=== PATIENT | male | born 1950 | race Caucasian/White ===

== ENCOUNTER 2018-04-23 10:03 | Inpatient (IN) | payer MEDICARE, MEDICAID ==
--- NOTE | 2018-04-23 10:18 | ED Physician Chart ---
ED Chief Complaint/HPI - Patient Information Date Seen:: 04/23/18 Time Seen:: 10:00 Chief Complaint:: Agitation History of Present Illness:: onset x 2 days of agitation and aggressive behavior; no report of trauma, H/As, neck pain, C/P, SOB, Abd. Pain, A/N/V/D/C, fever, chills, or urinary s/s Historian:: Patient, EMS Review:: Nurse's Note Reviewed, Old Chart Reviewed, EMS run form Reviewed ED Review of Systems - Review of Systems General/Constitutional: No fever, No chills, No weight loss, No weakness, No diaphoresis, No edema, No loss of appetite Skin: No skin lesions, No rash, No bruising Head: No headache, No light-headedness Eyes: No loss of vision, No pain, No diplopia ENT: No earache, No nasal drainage, No sore throat, No tinnitus Neck: No neck pain, No swelling, No thyromegaly, No stiffness, No mass noted Cardio Vascular: No chest pain, No palpitations, No PND, No orthopnea, No edema Pulmonary: No SOB, No cough, No sputum, No wheezing GI: No nausea, No vomiting, No diarrhea, No pain, No melena, No hematochezia, No constipation, No hematemesis G/U: No dysuria, No frequency, No hematuria Musculoskeletal: No bone or joint pain, No back pain, No muscle pain Endocrine: No polyuria, No polydipsia Psychiatric: Prior psych history, Depression, Anxiety, No suicidal ideation, No homicidal ideation, No auditory hallucination, No visual hallucination Hematopoietic: No bruising, No lymphadenopathy Allergic/Immuno: No urticaria, No angioedema Neurological: No syncope, No focal symptoms, No weakness, No paresthesia, No headache, No seizure, No dizziness, Confusion, No vertigo ED Past Medical History - Past Medical History Obtainable: Yes Past Medical History: HTN, Dyslipidemia, Dementia Family History: HTN Social History: Non Smoker, No Alcohol, No Drug Use, Single, Care Facility Surgical History: None Psychiatricy History: Depression, Bipolar, Dementia Medication: Reviewed ED Physical Exam - Physical Examination General/Constitutional: Awake, Well-developed, well-nourished, Alert, No distress, GCS 15, Non-toxic appearing, Ambulatory Head: Atraumatic Eyes: Lids, conjuctiva normal, PERRL, EOMI Skin: Nl inspection, No rash, No skin lesions, No ecchymosis, Well hydrated, No lymphadenopathy ENMT: External ears, nose nl, TM canals nl, Nasal exam nl, Lips, teeth, gums nl , Oropharynx nl, Tonsils nl Neck: Nontender, Full ROM w/o pain, No JVD, No nuchal rigidity, No bruit, No mass, No stridor Respiratory: Nl effort/Exclusion, Clear to Auscultation, No Wheeze/Rhonchi/Rales Cardio Vascular: RRR, No murmur, gallop, rubs, NL S1 S2, Carotid/Femoral/Distal pulses equal bilaterally GI: No tenderness/rebounding/guarding, No organomegaly, No hernia, Normal BS's, Nondistended, No mass/bruits, No McBurney tenderness : No CVA tenderness Extremities: No tenderness or effusion, Full ROM, normal strength in all extremities, No edema, Normal digits & nails Neuro/Psych: Alert/oriented, DTR's symmetric, Normal sensory exam, Normal motor strength, Judgement/insight normal, Mood normal, Normal gait, No focal deficits Misc: Normal back, No paraspinal tenderness ED Septic Shock - . Is Septic Shock (SBP<90, OR Lactate>4 mmol\L) present?: No
[2018-04-23 10:31] LABS: BASOPHILE ABSOLUTE 0.1 Th/cumm (0-0.2); EOSINOPHILE ABSOLUTE 0.3 Th/cmm (0.1-0.4); LYMPHOCYTE ABSOLUTE 2.5 Th/cmm (1.5-3.0); MEAN CORPUSCULAR HGB CONC 33.6 pg (28.0-36.0)
[2018-04-23 10:35] LABS: % BASOPHILS 0.5 % (0.0-2.0); % LYMPHOCYTES 17.3 % (20.0-50.0); % MONOCYTES 7.1 % (2.0-10.0); % NEUTROPHILS 73.1 % (40.0-80.0); HEMATOCRIT 39.1 % (41.0-60); HEMOGLOBIN 13.1 gm/dL (12-16); MEAN CELL VOLUME 94.1 fl (80-99); MEAN CORPUSCULAR HEMOGLOBIN 31.6 pg (27.0-31.0); MEAN PLATELET VOLUME 7.8 fl; NEUTROPHILE ABSOLUTE 10.4 Th/cmm (1.8-8.0); PLATELET COUNT 277 Th/cmm (150-400); RED BLOOD COUNT 4.16 Mil/cmm (3.80-5.80); RED CELL DISTRIBUTION WIDTH 12.3 % (11.5-20.0)
[2018-04-23 10:37] LABS: WHITE BLOOD COUNT 14.3 Th/cmm (4.8-10.8)
[2018-04-23 10:50] LABS: ACETAMINOPHEN < 10.0 ug/mL (10.0-30.0); ALB/GLOB RATIO 1.1 (1.0-1.8); ALBUMIN 3.8 gm/dL (4.2-5.5); ALKALINE PHOSPHATASE 58 U/L (34-104); ANION GAP 12.3 (7.0-16.0); BILIRUBIN,TOTAL 0.5 mg/dL (0.3-1.0); BUN - UREA NITROGEN 14 mg/dL (7-25); CALCIUM SERUM 8.9 mg/dL (8.6-10.3); CARBON DIOXIDE 27.4 mEq/L (21.0-31.0); CHLORIDE 98 mEq/L (98-107); CHOLESTEROL 154 mg/dL (<200); CREATININE - SERUM 0.7 mg/dL (0.7-1.3); GFR AFRICAN-AMERICAN > 60.0 ml/min (>90); GFR NON AFRICAN-AMERICAN > 60.0 ml/min; GLUCOSE 73 mg/dL (70-105); HDL -HIGH DENSITY LIPOPROTEIN 48 mg/dL (23-92); POTASSIUM SERUM 3.7 mEq/L (3.5-5.1); SALICYLATES (ASPIRIN) < 25.0 mg/L (30.0-100.0); SGOT 15 U/L (13-39); SGPT/ALT 12 U/L (7-52); SODIUM SERUM 134 mEq/L (136-145); TOTAL PROTEIN,SERUM 7.4 gm/dL (6.0-8.3); TRIGLYCERIDES 101 mg/dL (<150)
[2018-04-23 11:31] LABS: URINE SOURCE CLEAN C
[2018-04-23 11:54] LABS: URINE BILIRUBIN NEGATIVE (NEGATIVE); URINE BLOOD NEGATIVE (NEGATIVE); URINE CLARITY CLEAR (CLEAR); URINE COLOR YELLOW; URINE GLUCOSE (UA) NEGATIVE (NEGATIVE); URINE KETONE NEGATIVE (NEGATIVE); URINE PROTEIN NEGATIVE (NEGATIVE)
[2018-04-23 11:55] LABS: URINE LEUKOCYTE ESTERASE NEGATIVE (NEGATIVE); URINE MICROSCOPIC INDICATED? NO; URINE NITRATE NEGATIVE (NEGATIVE); URINE UROBILINOGEN 0.2 E.U./dL (0.2 - 1.0)
[2018-04-23 12:00] LABS: AMPHETAMINE URINE NEGATIVE (NEGATIVE); BARBITURATES URINE NEGATIVE (NEGATIVE); BENZODIAZEPINES QUAL URINE NEGATIVE (NEGATIVE); CANNABINOID THC NEGATIVE (NEGATIVE); COCAINE METABOLITE QUAL URINE NEGATIVE (NEGATIVE); METHADONE URINE NEGATIVE (NEGATIVE); METHAMPHETAMINES QUAL URINE NEGATIVE (NEGATIVE); OPIATES (MORPHINE) QUAL. URINE NEGATIVE (NEGATIVE); PHENCYCLIDINE (PCP) URINE NEGATIVE (NEGATIVE); TRICYCLICS (TCA) QUAL. URINE NEGATIVE (NEGATIVE)
--- NOTE | 2018-04-23 14:42 | Diagnostic Imaging Report ---
CHEST X-RAY: AP view INDICATION: Leukocytosis COMPARISON: None FINDINGS: There is evidence of prior median sternotomy. There is no focal consolidation or pleural effusions The heart is normal in size. The osseous structures demonstrate no acute abnormalities. IMPRESSION: No focal consolidation identified. Evidence of prior median sternotomy.
[2018-04-23 17:35] LABS: A1C % 7.4 % (4.0-6.0)
[2018-04-23] MEDS: Atorvastatin Calcium 10 MG TAB PO SCH (20:57)
[2018-04-23] MEDS ORDERED: INSULIN HUMAN REGULAR 100 UNITS/ML UNIT SUBQ SCH (21:00)
[2018-04-24] MEDS: INSULIN ASPART SLIDING SCALE 100 UNITS/ML UNIT SUBQ SCH ×3 (07:21→17:24)
[2018-04-24] MEDS ORDERED: INSULIN ASPART, RECOMBINANT 100 UNITS/ML SUBQ SCH (08:00)
--- NOTE | 2018-04-24 09:24 | History and Physical ---
History of Present Illness - HPI Chief Complaint: Increased in agitation HPI: Patient was send from SNF for evaluation of increased in agitation. Vital Signs: Last Vital Signs Temp 97.9 F 04/24/18 06:03 Pulse 94 04/24/18 06:03 Resp 20 04/24/18 06:03 BP 144/83 04/24/18 06:03 Pulse Ox 98 04/24/18 06:03 Past Medical History Cardiovascular: Report: HTN Pulmonary: Report: No Pertinent Hx FOOD TESTER: Report: Dementia GI: Report: No Pertinent Hx Psych: Report: Schizophrenia Musculoskeletal: Report: No Pertinent Hx Rheumatologic: Report: No pertinent Hx Infectious Disease: Report: Other (Dermatitis) Renal/: Report: No Pertinent Hx Endocrine: Report: Diabetes Dermatology: Report: Eczema - Past Surgical History Past Surgical History: No pertinent Hx Family Medical History - Family Member Mother History Unknown: Yes Ethnicity: Social History Smoke: No Alcohol: None Drugs: None Lives: Custodial Domestic Violence: Negative - Medications Home Medications: Home Medication Medication Instructions Recorded Type Aspirin [Aspirin Chewable] 81 mg PO DAILY 04/23/18 History Atorvastatin Calcium [Lipitor] 20 mg PO HS 04/23/18 History Cyanocobalamin (Vitamin B-12) 1 tab PO DAILY 04/23/18 History [Vitamin B-12] Donepezil Hcl [Aricept] 10 mg PO DAILY 04/23/18 History Escitalopram Oxalate [Lexapro] 10 mg PO DAILY 04/23/18 History Insulin Human Regular [NovoLIN R] 2 units SUBQ TID 04/23/18 History Ivermectin [Stromectol] 15 mg PO QWEEK 0730 04/23/18 History Prednisone [Deltasone] 20 mg PO BID 04/23/18 History metFORMIN [Glucophage] 1,000 mg PO BID 04/23/18 History - Allergies Allergies/Adverse Reactions: Allergies Allergy/AdvReac Type Severity Reaction Status Date / Time No Known Allergies Allergy Verified 04/23/18 10:24 Review of Systems - Review of Systems Constitutional: Report: No Significant Eyes: Report: No Significant ENT: Report: No Significant Respiratory: Report: No Significant Cardiovascular: Report: No Significant Gastrointestinal: Report: No Significant Genitourinary: Report: No Significant, Frequency Skin: Report: Rash, Other (Body itch) Neurological: Report: No Significant Physical Exam - Physical Exam HEENT: Report: Ears Nose Throat within normal limits Neck: Report: Within normal limits Cardiovascular Systems: Report: Regular, Rate and Rhythm Respiratory: Report: Breath Sounds are within normal limits Abdomen: Report: Non-tender to palpation Back: Report: Inspection of back is within normal limits. Extremities: Report: Non-tender to palpation. Skin: Report: Other (Mukltiple scoriation in different oarts of arms and chest front and back, with dry lesions. ) Neuro/Psych: Report: Disoriented to name time or place - Lab Results All Lab Results last 24 hours: Laboratory Results - last 24 hr 04/23/18 04/23/18 04/23/18 10:25 10:25 10:25 WBC 14.3 H RBC 4.16 Hgb 13.1 Hct 39.1 L MCV 94.1 MCH 31.6 H MCHC Differential 33.6 RDW 12.3 Plt Count 277 MPV 7.8 Neutrophils % 73.1 Lymphocytes % 17.3 L Monocytes % 7.1 Eosinophils % 2.0 Basophils % 0.5 Sodium 134 L Potassium 3.7 Chloride 98 Carbon Dioxide 27.4 Anion Gap 12.3 BUN 14 Creatinine 0.7 Est GFR ( Amer) > 60.0 Est GFR (Non-Af Amer) > 60.0 BUN/Creatinine Ratio 20.0 Glucose 73 POC Glucose Hemoglobin A1c % 7.4 H Whole Bld Lactic Acid Calcium 8.9 Total Bilirubin 0.5 AST 15 ALT 12 Alkaline Phosphatase 58 Troponin I Total Protein 7.4 Albumin 3.8 L Globulin 3.6 Albumin/Globulin Ratio 1.1 Triglycerides 101 Cholesterol 154 LDL Cholesterol Direct 95 HDL Cholesterol 48 TSH Urine Source Urine Color Urine Clarity Urine pH Ur Specific [place] Urine Protein Urine Glucose (UA) Urine Ketones Urine Blood Urine Nitrate Urine Bilirubin Urine Urobilinogen Ur Leukocyte Esterase Salicylates < 25.0 L Urine Opiates Screen Urine Methadone Screen Acetaminophen < 10.0 L Ur Barbiturates Screen Ur Tricyclics Screen Ur Phencyclidine Scrn Amphetamines Screen U Methamphetamines Scrn U Benzodiazepines Scrn U Cocaine Metab Screen U Cannabinoids Screen Ethyl Alcohol < 10 04/23/18 04/23/18 04/23/18 10:25 10:25 10:25 WBC RBC Hgb Hct MCV MCH MCHC Differential RDW Plt Count MPV Neutrophils % Lymphocytes % Monocytes % Eosinophils % Basophils % Sodium Potassium Chloride Carbon Dioxide Anion Gap BUN Creatinine Est GFR ( Amer) Est GFR (Non-Af Amer) BUN/Creatinine Ratio Glucose POC Glucose Hemoglobin A1c % Whole Bld Lactic Acid 2.33 H* Calcium Total Bilirubin AST ALT Alkaline Phosphatase Troponin I < 0.01 L Total Protein Albumin Globulin Albumin/Globulin Ratio Triglycerides Cholesterol LDL Cholesterol Direct HDL Cholesterol TSH 1.27 Urine Source Urine Color Urine Clarity Urine pH Ur Specific [place] Urine Protein Urine Glucose (UA) Urine Ketones Urine Blood Urine Nitrate Urine Bilirubin Urine Urobilinogen Ur Leukocyte Esterase Salicylates Urine Opiates Screen Urine Methadone Screen Acetaminophen Ur Barbiturates Screen Ur Tricyclics Screen Ur Phencyclidine Scrn Amphetamines Screen U Methamphetamines Scrn U Benzodiazepines Scrn U Cocaine Metab Screen U Cannabinoids Screen Ethyl Alcohol 04/23/18 04/23/18 04/23/18 10:28 10:28 12:20 WBC RBC Hgb Hct MCV MCH MCHC Differential RDW Plt Count MPV Neutrophils % Lymphocytes % Monocytes % Eosinophils % Basophils % Sodium Potassium Chloride Carbon Dioxide Anion Gap BUN Creatinine Est GFR ( Amer) Est GFR (Non-Af Amer) BUN/Creatinine Ratio Glucose POC Glucose Hemoglobin A1c % Whole Bld Lactic Acid 1.96 Calcium Total Bilirubin AST ALT Alkaline Phosphatase Troponin I Total Protein Albumin Globulin Albumin/Globulin Ratio Triglycerides Cholesterol LDL Cholesterol Direct HDL Cholesterol TSH Urine Source CLEAN C Urine Color YELLOW Urine Clarity CLEAR Urine pH 7.0 Ur Specific [place] < 1.005 L Urine Protein NEGATIVE Urine Glucose (UA) NEGATIVE Urine Ketones NEGATIVE Urine Blood NEGATIVE Urine Nitrate NEGATIVE Urine Bilirubin NEGATIVE Urine Urobilinogen 0.2 Ur Leukocyte Esterase NEGATIVE Salicylates Urine Opiates Screen NEGATIVE Urine Methadone Screen NEGATIVE Acetaminophen Ur Barbiturates Screen NEGATIVE Ur Tricyclics Screen NEGATIVE Ur Phencyclidine Scrn NEGATIVE Amphetamines Screen NEGATIVE U Methamphetamines Scrn NEGATIVE U Benzodiazepines Scrn NEGATIVE U Cocaine Metab Screen NEGATIVE U Cannabinoids Screen NEGATIVE Ethyl Alcohol 04/24/18 07:16 WBC RBC Hgb Hct MCV MCH MCHC Differential RDW Plt Count MPV Neutrophils % Lymphocytes % Monocytes % Eosinophils % Basophils % Sodium Potassium Chloride Carbon Dioxide Anion Gap BUN Creatinine Est GFR ( Amer) Est GFR (Non-Af Amer) BUN/Creatinine Ratio Glucose POC Glucose 235 H Hemoglobin A1c % Whole Bld Lactic Acid Calcium Total Bilirubin AST ALT Alkaline Phosphatase Troponin I Total Protein Albumin Globulin Albumin/Globulin Ratio Triglycerides Cholesterol LDL Cholesterol Direct HDL Cholesterol TSH Urine Source Urine Color Urine Clarity Urine pH Ur Specific [place] Urine Protein Urine Glucose (UA) Urine Ketones Urine Blood Urine Nitrate Urine Bilirubin Urine Urobilinogen Ur Leukocyte Esterase Salicylates Urine Opiates Screen Urine Methadone Screen Acetaminophen Ur Barbiturates Screen Ur Tricyclics Screen Ur Phencyclidine Scrn Amphetamines Screen U Methamphetamines Scrn U Benzodiazepines Scrn U Cocaine Metab Screen U Cannabinoids Screen Ethyl Alcohol - Assessment Assessment: Patient is awake, alert, calm, in no aute distress. Dx: Increased in agitation , Dermatitis, HTN, DM, Hyerlipemia, CAD, Dementia - Plan Plan: Patient is follow by Psychiatry, continue with SNF meds, Clotrimazole, Benadryl and bactrim are added. Will continue to monitor.
[2018-04-24] MEDS ORDERED: Haloperidol Lactate 5 mg/mL 1mL Vial ONE (10:38)
[2018-04-24] MEDS ORDERED: Haloperidol Lactate 5 mg/mL 1mL Vial IM STA (10:51)
[2018-04-24] MEDS: Sulfamethoxazole/TMP 800/160mg Tab PO SCH ×2 (11:10→16:41)
[2018-04-24] MEDS: Betamethasone/Clotrimazole Cream 15 gm Tube TP SCH ×2 (11:10→17:23)
[2018-04-24] MEDS: Aspirin 81mg Chewable Tab PO SCH (11:11)
[2018-04-24] MEDS: Atorvastatin Calcium 10 MG TAB PO SCH (21:28)
--- NOTE | 2018-04-24 23:56 | Psychosocial Evaluation ---
DATE OF SERVICE: 04/23/2018 IDENTIFYING DATA: The patient is a 67-year-old male, resident of [facility] in [place]. Information obtained by directly interviewing the patient as well as reviewing the admission papers. JUSTIFICATION OF HOSPITALIZATION: The patient is admitted on 5150 for being gravely disabled and a danger to others. CHIEF COMPLAINT: "I don't understand. I don't know why I have to be here." HISTORY OF PRESENT ILLNESS: This is the first psychiatric hospitalization to [facility] [place] for this patient who is reported to have been out of control, agitated and could not be contained at a lower level of care and the patient has been sent to the [facility] [place], where he was evaluated and placed on 5150 for stabilization. The patient's sleep and appetite prior to the hospitalization are reported to be poor. The patient has been getting very agitated even at the time of the hospitalization, the patient has been out of control and has to be given the emergency dose of medications to calm him down. After the Emergency doses of medication, the patient has been very drowsy and is not able to provide much of information. PAST PSYCHIATRIC HISTORY: Details are not known. MEDICAL HISTORY: Physical examination is requested done by Dr. Fang. SUBSTANCE ABUSE HISTORY: None. PHYSICAL OR SEXUAL ABUSE HISTORY: None. LEGAL PROBLEMS: None at this time. STRENGTH AND ASSETS: The patient is motivated. MENTAL STATUS EXAMINATION: The patient is a 67-year-old, looking his stated age, superficially cooperative. Eye contact is poor. Mood is noted to be irritable. Affect is constricted. The patient has been getting out of control. The patient is screaming and yelling and has been getting agitated. The patient has to be given a dose of Haldol, Ativan and Benadryl to calm him down. The patient's attention span and concentration are noted to be poor. The patient is having problem with short-term as well as long-term memory deficits. The patient is very paranoid at this time. The patient has been having difficult time to cope with the stress. The patient is alert and aware that he is in the hospital, but he could not figure it out why. The patient is not contacting for safety. DIAGNOSTIC IMPRESSION: AXIS I: A. Psychotic disorder, not otherwise specified. B. Dementia and behavioral change, secondary trait. AXIS II: None. AXIS III: As per Dr. Fang. IMMEDIATE TREATMENT PLAN: The patient is going to be observed on inpatient unit, provided with supportive psychotherapy. The patient is going to be closely monitored. ESTIMATED LENGTH OF STAY: 5-7 days. DISCHARGE CRITERIA: When patient is no longer a threat to self or others and be able to cope up with the stress. JOB# [id number]
[2018-04-25] MEDS: Betamethasone/Clotrimazole Cream 15 gm Tube TP SCH ×2 (08:49→17:32)
[2018-04-25] MEDS: Aspirin 81mg Chewable Tab PO SCH (08:50)
[2018-04-25] MEDS: Sulfamethoxazole/TMP 800/160mg Tab PO SCH ×2 (08:50→17:22)
[2018-04-25] MEDS: INSULIN ASPART SLIDING SCALE 100 UNITS/ML UNIT SUBQ SCH ×3 (09:42→17:33)
--- NOTE | 2018-04-25 12:38 | General Progress Note ---
Subjective - Review of Systems Service Date: 04/25/18 Subjective: Patient is confused Objective - Results Result Diagrams: 04/23/18 10:25 04/23/18 10:25 Recent Labs: Laboratory Last Values WBC 14.3 Th/cmm (4.8-10.8) H 04/23/18 10:25 RBC 4.16 Mil/cmm (3.80-5.80) 04/23/18 10:25 Hgb 13.1 gm/dL (12-16) 04/23/18 10:25 Hct 39.1 % (41.0-60) L 04/23/18 10:25 MCV 94.1 fl (80-99) 04/23/18 10:25 MCH 31.6 pg (27.0-31.0) H 04/23/18 10:25 MCHC Differential 33.6 pg (28.0-36.0) 04/23/18 10:25 RDW 12.3 % (11.5-20.0) 04/23/18 10:25 Plt Count 277 Th/cmm (150-400) 04/23/18 10:25 MPV 7.8 fl 04/23/18 10:25 Neutrophils % 73.1 % (40.0-80.0) 04/23/18 10:25 Lymphocytes % 17.3 % (20.0-50.0) L 04/23/18 10:25 Monocytes % 7.1 % (2.0-10.0) 04/23/18 10:25 Eosinophils % 2.0 % (0.0-5.0) 04/23/18 10:25 Basophils % 0.5 % (0.0-2.0) 04/23/18 10:25 Sodium 134 mEq/L (136-145) L 04/23/18 10:25 Potassium 3.7 mEq/L (3.5-5.1) 04/23/18 10:25 Chloride 98 mEq/L (98-107) 04/23/18 10:25 Carbon Dioxide 27.4 mEq/L (21.0-31.0) 04/23/18 10:25 Anion Gap 12.3 (7.0-16.0) 04/23/18 10:25 BUN 14 mg/dL (7-25) 04/23/18 10:25 Creatinine 0.7 mg/dL (0.7-1.3) 04/23/18 10:25 Est GFR ( Amer) > 60.0 ml/min (>90) 04/23/18 10:25 Est GFR (Non-Af Amer) > 60.0 ml/min 04/23/18 10:25 BUN/Creatinine Ratio 20.0 04/23/18 10:25 Glucose 73 mg/dL (70-105) 04/23/18 10:25 POC Glucose 143 MG/DL (70 - 105) H 04/25/18 11:58 Hemoglobin A1c % 7.4 % (4.0-6.0) H 04/23/18 10:25 Whole Bld Lactic Acid 1.96 mmol/L (0.60-1.99) 04/23/18 12:20 Calcium 8.9 mg/dL (8.6-10.3) 04/23/18 10:25 Total Bilirubin 0.5 mg/dL (0.3-1.0) 04/23/18 10:25 AST 15 U/L (13-39) 04/23/18 10:25 ALT 12 U/L (7-52) 04/23/18 10:25 Alkaline Phosphatase 58 U/L (34-104) 04/23/18 10:25 Troponin I < 0.01 ng/mL (0.01-0.05) L 04/23/18 10:25 Total Protein 7.4 gm/dL (6.0-8.3) 04/23/18 10:25 Albumin 3.8 gm/dL (4.2-5.5) L 04/23/18 10:25 Globulin 3.6 gm/dL 04/23/18 10:25 Albumin/Globulin Ratio 1.1 (1.0-1.8) 04/23/18 10:25 Triglycerides 101 mg/dL (<150) 04/23/18 10:25 Cholesterol 154 mg/dL (<200) 04/23/18 10:25 LDL Cholesterol Direct 95 mg/dL (75-193) 04/23/18 10:25 HDL Cholesterol 48 mg/dL (23-92) 04/23/18 10:25 TSH 1.27 uIU/ml (0.34-5.60) 04/23/18 10:25 Urine Source CLEAN C 04/23/18 10:28 Urine Color YELLOW 04/23/18 10:28 Urine Clarity CLEAR (CLEAR) 04/23/18 10:28 Urine pH 7.0 (4.6 - 8.0) 04/23/18 10:28 Ur Specific [place] < 1.005 (1.005-1.030) L 04/23/18 10:28 Urine Protein NEGATIVE mg/dL (NEGATIVE) 04/23/18 10:28 Urine Glucose (UA) NEGATIVE mg/dL (NEGATIVE) 04/23/18 10:28 Urine Ketones NEGATIVE mg/dL (NEGATIVE) 04/23/18 10:28 Urine Blood NEGATIVE (NEGATIVE) 04/23/18 10:28 Urine Nitrate NEGATIVE (NEGATIVE) 04/23/18 10:28 Urine Bilirubin NEGATIVE (NEGATIVE) 04/23/18 10:28 Urine Urobilinogen 0.2 E.U./dL (0.2 - 1.0) 04/23/18 10:28 Ur Leukocyte Esterase NEGATIVE (NEGATIVE) 04/23/18 10:28 Salicylates < 25.0 mg/L (30.0-100.0) L 04/23/18 10:25 Urine Opiates Screen NEGATIVE (NEGATIVE) 04/23/18 10:28 Urine Methadone Screen NEGATIVE (NEGATIVE) 04/23/18 10:28 Acetaminophen < 10.0 ug/mL (10.0-30.0) L 04/23/18 10:25 Ur Barbiturates Screen NEGATIVE (NEGATIVE) 04/23/18 10:28 Ur Tricyclics Screen NEGATIVE (NEGATIVE) 04/23/18 10:28 Ur Phencyclidine Scrn NEGATIVE (NEGATIVE) 04/23/18 10:28 Amphetamines Screen NEGATIVE (NEGATIVE) 04/23/18 10:28 U Methamphetamines Scrn NEGATIVE (NEGATIVE) 04/23/18 10:28 U Benzodiazepines Scrn NEGATIVE (NEGATIVE) 04/23/18 10:28 U Cocaine Metab Screen NEGATIVE (NEGATIVE) 04/23/18 10:28 U Cannabinoids Screen NEGATIVE (NEGATIVE) 04/23/18 10:28 Ethyl Alcohol < 10 mg/dL (0-10) 04/23/18 10:25 RPR NONREACTIVE (NONREACTIVE) 04/23/18 10:25 - Physical Exam Vitals and I&O: Vital Signs Temp 97.7 F 04/25/18 06:39 Pulse 96 04/25/18 06:39 Resp 20 04/25/18 06:39 BP 110/76 04/25/18 06:39 Pulse Ox 97 04/25/18 06:39 Intake & Output 04/24/18 04/25/18 04/25/18 18:59 06:59 18:59 Intake Total 800 120 Balance 800 120 Intake: Oral 800 120 Other: # Voids 2 2 Active Medications: Current Medications Aspirin (Aspirin Chewable) 81 mg PO DAILY [facility] Stop: 06/23/18 08:59 Last Admin: 04/25/18 08:50 Dose: 81 mg Atorvastatin Calcium (Lipitor) 20 mg PO HS [facility] Stop: 06/22/18 20:59 Last Admin: 04/24/18 21:28 Dose: Not Given Betamethasone/Clotrimazole (Lotrisone Cream) 1 appl TP BID [facility] Stop: 06/23/18 09:59 Last Admin: 04/25/18 08:49 Dose: 1 appl Cyanocobalamin (Vitamin B12) 1,000 mcg PO DAILY CON Stop: 06/23/18 08:59 Last Admin: 04/25/18 08:49 Dose: 1,000 mcg Diphenhydramine HCl (Benadryl) 50 mg PO TID [facility] Stop: 06/23/18 09:14 Last Admin: 04/25/18 08:50 Dose: 50 mg Donepezil HCl (Aricept) 10 mg PO DAILY [facility] Stop: 06/23/18 08:59 Last Admin: 04/25/18 08:49 Dose: 10 mg Escitalopram Oxalate (Lexapro) 10 mg PO DAILY [facility]; Protocol Stop: 06/23/18 08:59 Last Admin: 04/25/18 08:50 Dose: 10 mg Insulin Aspart (Novolog Insulin Sliding Scale) 0 units SUBQ TIDWM [facility]; Protocol Stop: 06/23/18 07:59 Last Admin: 04/25/18 09:42 Dose: 12 units Ivermectin (Stromectol) 15 mg PO QWEEK 0730 [facility] Stop: 05/13/18 07:31 Lorazepam (Ativan) 0.5 mg PO Q4H PRN; Protocol PRN Reason: Anxiety Stop: 06/22/18 17:55 Last Admin: 04/24/18 09:09 Dose: 0.5 mg Metformin HCl (Glucophage) 1,000 mg PO BID [facility] Stop: 06/23/18 08:59 Last Admin: 04/25/18 08:50 Dose: 1,000 mg Prednisone (Deltasone) 20 mg PO BID [facility] Stop: 04/27/18 16:59 Last Admin: 04/25/18 08:49 Dose: 20 mg Quetiapine Fumarate (Seroquel) 12.5 mg PO HS [facility]; Protocol Stop: 06/23/18 20:59 Trimethoprim/Sulfamethoxazole (Bactrim Ds) 1 tab PO BID [facility] Stop: 05/04/18 09:59 Last Admin: 04/25/18 08:50 Dose: 1 tab Zolpidem Tartrate (Ambien) 5 mg PO HS PRN PRN Reason: Insomnia Stop: 06/22/18 17:56 Last Admin: 04/23/18 20:57 Dose: 5 mg General: Alert, No acute distress HEENT: Atraumatic Neck: Supple Cardiovascular: Regular rate Lungs: Clear to auscultation Abdomen: Bowel sounds Extremities: Other (No edema) Neurological: Normal gait Skin: Other (Warm and dy) Psych/Mental Status: Other (Confused, not oriented) Assessment/Plan - Assessment Assessment: Patient is awake, alert, calm, in no aute distress. Dx: Increased in agitation , Dermatitis, HTN, DM, Hyerlipemia, CAD, Dementia - Plan Plan: Patient is follow by Psychiatry, continue with SNF meds, Clotrimazole, Benadryl and bactrim are added. Will continue to monitor.
[2018-04-25 13:31] LABS: CHOLESTEROL 173 mg/dL (<200); HDL -HIGH DENSITY LIPOPROTEIN 56 mg/dL (23-92); TRIGLYCERIDES 71 mg/dL (<150)
--- NOTE | 2018-04-25 18:33 | Progress Notes ---
DATE: 04/25/2018 SUBJECTIVE: Staff was spoken to. The patient is interviewed. Mood is noted to be irritable. Affect is constricted. The patient is still confused. Insight and judgment at this time are noted to be still impaired. Coping skills are noted to be poor. The patient has been having difficult time to participate in the groups. Even when asked about whether he had any breakfast, it is taking the patient a long time to respond. The patient had been agitated yesterday and has to be given a dose of the medications and the patient is reported to have slept well. ASSESSMENT: The patient is still confused and demented. PLAN: To continue the patient with the supportive therapy and I encouraged the patient to verbalize the concerns rather than to act out. JOB# [id number]
[2018-04-25] MEDS: Atorvastatin Calcium 10 MG TAB PO SCH (20:41)
[2018-04-26] MEDS: Sulfamethoxazole/TMP 800/160mg Tab PO SCH ×2 (09:24→17:13)
[2018-04-26] MEDS: Aspirin 81mg Chewable Tab PO SCH (09:25)
[2018-04-26] MEDS: INSULIN ASPART SLIDING SCALE 100 UNITS/ML UNIT SUBQ SCH ×3 (09:40→17:13)
--- NOTE | 2018-04-26 09:44 | General Progress Note ---
Subjective - Review of Systems Service Date: 04/26/18 Subjective: Patient is confused Objective - Results Result Diagrams: 04/23/18 10:25 04/23/18 10:25 Recent Labs: Laboratory Last Values WBC 14.3 Th/cmm (4.8-10.8) H 04/23/18 10:25 RBC 4.16 Mil/cmm (3.80-5.80) 04/23/18 10:25 Hgb 13.1 gm/dL (12-16) 04/23/18 10:25 Hct 39.1 % (41.0-60) L 04/23/18 10:25 MCV 94.1 fl (80-99) 04/23/18 10:25 MCH 31.6 pg (27.0-31.0) H 04/23/18 10:25 MCHC Differential 33.6 pg (28.0-36.0) 04/23/18 10:25 RDW 12.3 % (11.5-20.0) 04/23/18 10:25 Plt Count 277 Th/cmm (150-400) 04/23/18 10:25 MPV 7.8 fl 04/23/18 10:25 Neutrophils % 73.1 % (40.0-80.0) 04/23/18 10:25 Lymphocytes % 17.3 % (20.0-50.0) L 04/23/18 10:25 Monocytes % 7.1 % (2.0-10.0) 04/23/18 10:25 Eosinophils % 2.0 % (0.0-5.0) 04/23/18 10:25 Basophils % 0.5 % (0.0-2.0) 04/23/18 10:25 Sodium 134 mEq/L (136-145) L 04/23/18 10:25 Potassium 3.7 mEq/L (3.5-5.1) 04/23/18 10:25 Chloride 98 mEq/L (98-107) 04/23/18 10:25 Carbon Dioxide 27.4 mEq/L (21.0-31.0) 04/23/18 10:25 Anion Gap 12.3 (7.0-16.0) 04/23/18 10:25 BUN 14 mg/dL (7-25) 04/23/18 10:25 Creatinine 0.7 mg/dL (0.7-1.3) 04/23/18 10:25 Est GFR ( Amer) > 60.0 ml/min (>90) 04/23/18 10:25 Est GFR (Non-Af Amer) > 60.0 ml/min 04/23/18 10:25 BUN/Creatinine Ratio 20.0 04/23/18 10:25 Glucose 73 mg/dL (70-105) 04/23/18 10:25 POC Glucose 539 MG/DL (70 - 105) H* 04/26/18 09:30 Hemoglobin A1c % 7.4 % (4.0-6.0) H 04/23/18 10:25 Whole Bld Lactic Acid 1.96 mmol/L (0.60-1.99) 04/23/18 12:20 Calcium 8.9 mg/dL (8.6-10.3) 04/23/18 10:25 Total Bilirubin 0.5 mg/dL (0.3-1.0) 04/23/18 10:25 AST 15 U/L (13-39) 04/23/18 10:25 ALT 12 U/L (7-52) 04/23/18 10:25 Alkaline Phosphatase 58 U/L (34-104) 04/23/18 10:25 Troponin I < 0.01 ng/mL (0.01-0.05) L 04/23/18 10:25 Total Protein 7.4 gm/dL (6.0-8.3) 04/23/18 10:25 Albumin 3.8 gm/dL (4.2-5.5) L 04/23/18 10:25 Globulin 3.6 gm/dL 04/23/18 10:25 Albumin/Globulin Ratio 1.1 (1.0-1.8) 04/23/18 10:25 Triglycerides 71 mg/dL (<150) 04/25/18 13:07 Cholesterol 173 mg/dL (<200) 04/25/18 13:07 LDL Cholesterol Direct 107 mg/dL (75-193) 04/25/18 13:07 HDL Cholesterol 56 mg/dL (23-92) 04/25/18 13:07 TSH 1.27 uIU/ml (0.34-5.60) 04/23/18 10:25 Urine Source CLEAN C 04/23/18 10:28 Urine Color YELLOW 04/23/18 10:28 Urine Clarity CLEAR (CLEAR) 04/23/18 10:28 Urine pH 7.0 (4.6 - 8.0) 04/23/18 10:28 Ur Specific [place] < 1.005 (1.005-1.030) L 04/23/18 10:28 Urine Protein NEGATIVE mg/dL (NEGATIVE) 04/23/18 10:28 Urine Glucose (UA) NEGATIVE mg/dL (NEGATIVE) 04/23/18 10:28 Urine Ketones NEGATIVE mg/dL (NEGATIVE) 04/23/18 10:28 Urine Blood NEGATIVE (NEGATIVE) 04/23/18 10:28 Urine Nitrate NEGATIVE (NEGATIVE) 04/23/18 10:28 Urine Bilirubin NEGATIVE (NEGATIVE) 04/23/18 10:28 Urine Urobilinogen 0.2 E.U./dL (0.2 - 1.0) 04/23/18 10:28 Ur Leukocyte Esterase NEGATIVE (NEGATIVE) 04/23/18 10:28 Salicylates < 25.0 mg/L (30.0-100.0) L 04/23/18 10:25 Urine Opiates Screen NEGATIVE (NEGATIVE) 04/23/18 10:28 Urine Methadone Screen NEGATIVE (NEGATIVE) 04/23/18 10:28 Acetaminophen < 10.0 ug/mL (10.0-30.0) L 04/23/18 10:25 Ur Barbiturates Screen NEGATIVE (NEGATIVE) 04/23/18 10:28 Ur Tricyclics Screen NEGATIVE (NEGATIVE) 04/23/18 10:28 Ur Phencyclidine Scrn NEGATIVE (NEGATIVE) 04/23/18 10:28 Amphetamines Screen NEGATIVE (NEGATIVE) 04/23/18 10:28 U Methamphetamines Scrn NEGATIVE (NEGATIVE) 04/23/18 10:28 U Benzodiazepines Scrn NEGATIVE (NEGATIVE) 04/23/18 10:28 U Cocaine Metab Screen NEGATIVE (NEGATIVE) 04/23/18 10:28 U Cannabinoids Screen NEGATIVE (NEGATIVE) 04/23/18 10:28 Ethyl Alcohol < 10 mg/dL (0-10) 04/23/18 10:25 RPR NONREACTIVE (NONREACTIVE) 04/23/18 10:25 - Physical Exam Vitals and I&O: Vital Signs Temp 98.4 F 04/26/18 06:32 Pulse 97 04/26/18 06:32 Resp 20 04/26/18 06:32 BP 136/84 04/26/18 06:32 Pulse Ox 97 04/26/18 06:32 Intake & Output 04/25/18 04/26/18 04/26/18 18:59 06:59 18:59 Intake Total 1200 120 Balance 1200 120 Intake: Oral 1200 120 Other: # Voids 3 2 Active Medications: Current Medications Aspirin (Aspirin Chewable) 81 mg PO DAILY CON Stop: 06/23/18 08:59 Last Admin: 04/26/18 09:25 Dose: 81 mg Atorvastatin Calcium (Lipitor) 20 mg PO HS CON Stop: 06/22/18 20:59 Last Admin: 04/25/18 20:41 Dose: 20 mg Betamethasone/Clotrimazole (Lotrisone Cream) 1 appl TP BID [facility] Stop: 06/23/18 09:59 Last Admin: 04/25/18 17:32 Dose: 1 appl Cyanocobalamin (Vitamin B12) 1,000 mcg PO DAILY CON Stop: 06/23/18 08:59 Last Admin: 04/26/18 09:25 Dose: 1,000 mcg Diphenhydramine HCl (Benadryl) 50 mg PO TID CON Stop: 06/23/18 09:14 Last Admin: 04/26/18 09:23 Dose: 50 mg Donepezil HCl (Aricept) 10 mg PO DAILY [facility] Stop: 06/23/18 08:59 Last Admin: 04/26/18 09:24 Dose: 10 mg Escitalopram Oxalate (Lexapro) 10 mg PO DAILY [facility]; Protocol Stop: 06/23/18 08:59 Last Admin: 04/26/18 09:24 Dose: 10 mg Insulin Aspart (Novolog Insulin Sliding Scale) 0 units SUBQ TIDWM [facility]; Protocol Stop: 06/23/18 07:59 Last Admin: 04/26/18 09:40 Dose: 12 units Ivermectin (Stromectol) 15 mg PO QWEEK 0730 [facility] Stop: 05/13/18 07:31 Lorazepam (Ativan) 0.5 mg PO Q4H PRN; Protocol PRN Reason: Anxiety Stop: 06/22/18 17:55 Last Admin: 04/26/18 09:24 Dose: 0.5 mg Metformin HCl (Glucophage) 850 mg PO TIDWM [facility] Stop: 06/25/18 11:59 Prednisone (Deltasone) 20 mg PO DAILY [facility] Stop: 05/02/18 08:59 Quetiapine Fumarate (Seroquel) 12.5 mg PO HS [facility]; Protocol Stop: 06/24/18 20:59 Last Admin: 04/25/18 20:42 Dose: 12.5 mg Trimethoprim/Sulfamethoxazole (Bactrim Ds) 1 tab PO BID [facility] Stop: 05/04/18 09:59 Last Admin: 04/26/18 09:24 Dose: 1 tab Zolpidem Tartrate (Ambien) 5 mg PO HS PRN PRN Reason: Insomnia Stop: 06/22/18 17:56 Last Admin: 04/23/18 20:57 Dose: 5 mg General: Alert, No acute distress HEENT: Atraumatic Neck: Supple Cardiovascular: Regular rate Lungs: Clear to auscultation Abdomen: Bowel sounds Extremities: Other (No edema) Neurological: Normal gait Skin: Other (Warm and dy) Psych/Mental Status: Other (Confused, not oriented) Assessment/Plan - Assessment Assessment: Patient is awake, alert, calm, in no aute distress. Blood sugar has been high. Dx: Increased in agitation, Dermatitis, HTN, DM, Hyerlipemia, CAD, Dementia - Plan Plan: Patient is follow by Psychiatry, continue with SNF meds, Metformin is increased. Will continue to monitor.
[2018-04-26] MEDS: Betamethasone/Clotrimazole Cream 15 gm Tube TP SCH ×2 (16:38→17:12)
[2018-04-26] MEDS: Atorvastatin Calcium 10 MG TAB PO SCH (20:52)
--- NOTE | 2018-04-27 00:21 | Progress Notes ---
DATE: 04/26/2018 SUBJECTIVE: Staff was spoken to. The patient is interviewed. Mood is noted to be irritable. Affect is constricted. Coping skills are noted to be poor at this time. Sleep and appetite are also noted to be very poor. The patient has been getting easily irritable and angry. The patient has no insight into his illness. ASSESSMENT: The patient is still psychotic and demented. PLAN: To continue the patient with the supportive therapy and followup. JOB# [id number]
--- NOTE | 2018-04-27 03:33 | Consultation ---
DATE OF CONSULTATION: 04/25/2018 REFERRING PHYSICIAN: Subha Patel M.D. TYPE OF CONSULTATION: Psychology. HISTORY OF PRESENT ILLNESS: The patient is a 67-year-old male. The patient is a resident of [facility] [place]. The following is by review of the medical record and by the patient's self report. The patient is being admitted on a 5150 for being gravely disabled and a danger to others. Upon interview, the patient states that he does not know why he is being hospitalized. According to the staff at the patient's facility, the patient had been agitated and out of control. The patient was placed on a 5150 for stabilization. The patient was given emergency medications on the day of admission due to the patient's increased agitation. The patient denied any suicidal ideation, plan or intention. However, the patient did not answer questions about homicidal ideation, plan or intention and did not verbally contract for safety and no self-harm or harm to others. PAST MEDICAL HISTORY: Please see history and physical by Dr. Fang. PAST PSYCHIATRIC HISTORY: Records are unavailable at this time. SUBSTANCE ABUSE HISTORY: The patient denied any history. PSYCHOSOCIAL HISTORY: The patient did not answer questions about occupational or educational history or cheondoism affiliation. The patient did not answer questions about physical or sexual abuse history or about current legal problems. The patient is selectively mute. MENTAL STATUS EXAMINATION: The patient appears to be younger than his stated age. The patient's attitude is guarded but superficially cooperative at times. Eye contact is fair to poor. Mood is irritable, mild to moderate. Affect is mood congruent and reactive. Speech is selectively mute. The patient answered the clinical questions with Yes or No answers. Thought process shows to be concrete, suspicious. The patient denied any suicidal ideation, plan or intention. The patient did not answer questions about self-harm or harm to others. The patient is guarded and suspicious and may indicate paranoid ideation. The patient's behavior has been difficult to redirect. Staff here reports the patient has had several yelling and screaming episodes. The patient did not participate in the memory assessment. This needs further evaluation. The patient's sensorium is alert and oriented to person and place. The patient did not participate in the interpretation of proverbs. Insight is poor. Judgment is compromised. DIAGNOSTIC IMPRESSION: AXIS I: 1. Psychotic disorder, not otherwise specified. 2. Dementia with behavioral disturbance. AXIS II: Deferred. AXIS III: Please see history and physical by Dr. Fang. PLAN: The patient has been seen by Dr. Patel for psychiatric evaluation and for the management of the patient's psychotropic medications. The patient was given emergency medications on the day of admission due to the patient's increased agitation. We will provide supportive psychotherapy to include reality orientation, reality differentiation, and reality integration. We will provide a limit setting and at de-escalation skill for the patient to be able to demonstrate emotional and self-regulation and become compliant with staff direction. We will provide motivational enhancement for the patient to become compliant and stay compliant with all aspects of his care and treatment. We will provide coping strategies for phase of life issues. We will provide opportunities daily for the patient to verbally contract for safety to include no self-harm and no harm to others. We will encourage the patient to be able to demonstrate emotional and self-regulation prior to discharge. Thank you, Dr. Patel for this consult and the opportunity to participate with you in this patient's care. JOB# [id number] CHERRY
[2018-04-27] MEDS: Aspirin 81mg Chewable Tab PO SCH (08:45)
[2018-04-27] MEDS: Betamethasone/Clotrimazole Cream 15 gm Tube TP SCH ×2 (08:46→16:58)
[2018-04-27] MEDS: Sulfamethoxazole/TMP 800/160mg Tab PO SCH ×2 (08:46→17:10)
[2018-04-27] MEDS: INSULIN ASPART SLIDING SCALE 100 UNITS/ML UNIT SUBQ SCH ×3 (09:09→16:57)
--- NOTE | 2018-04-27 09:15 | General Progress Note ---
Subjective - Review of Systems Service Date: 04/27/18 Subjective: Patient is confused Objective - Results Result Diagrams: 04/23/18 10:25 04/23/18 10:25 Recent Labs: Laboratory Last Values WBC 14.3 Th/cmm (4.8-10.8) H 04/23/18 10:25 RBC 4.16 Mil/cmm (3.80-5.80) 04/23/18 10:25 Hgb 13.1 gm/dL (12-16) 04/23/18 10:25 Hct 39.1 % (41.0-60) L 04/23/18 10:25 MCV 94.1 fl (80-99) 04/23/18 10:25 MCH 31.6 pg (27.0-31.0) H 04/23/18 10:25 MCHC Differential 33.6 pg (28.0-36.0) 04/23/18 10:25 RDW 12.3 % (11.5-20.0) 04/23/18 10:25 Plt Count 277 Th/cmm (150-400) 04/23/18 10:25 MPV 7.8 fl 04/23/18 10:25 Neutrophils % 73.1 % (40.0-80.0) 04/23/18 10:25 Lymphocytes % 17.3 % (20.0-50.0) L 04/23/18 10:25 Monocytes % 7.1 % (2.0-10.0) 04/23/18 10:25 Eosinophils % 2.0 % (0.0-5.0) 04/23/18 10:25 Basophils % 0.5 % (0.0-2.0) 04/23/18 10:25 Sodium 134 mEq/L (136-145) L 04/23/18 10:25 Potassium 3.7 mEq/L (3.5-5.1) 04/23/18 10:25 Chloride 98 mEq/L (98-107) 04/23/18 10:25 Carbon Dioxide 27.4 mEq/L (21.0-31.0) 04/23/18 10:25 Anion Gap 12.3 (7.0-16.0) 04/23/18 10:25 BUN 14 mg/dL (7-25) 04/23/18 10:25 Creatinine 0.7 mg/dL (0.7-1.3) 04/23/18 10:25 Est GFR ( Amer) > 60.0 ml/min (>90) 04/23/18 10:25 Est GFR (Non-Af Amer) > 60.0 ml/min 04/23/18 10:25 BUN/Creatinine Ratio 20.0 04/23/18 10:25 Glucose 73 mg/dL (70-105) 04/23/18 10:25 POC Glucose 285 MG/DL (70 - 105) H 04/26/18 17:03 Hemoglobin A1c % 7.4 % (4.0-6.0) H 04/23/18 10:25 Whole Bld Lactic Acid 1.96 mmol/L (0.60-1.99) 04/23/18 12:20 Calcium 8.9 mg/dL (8.6-10.3) 04/23/18 10:25 Total Bilirubin 0.5 mg/dL (0.3-1.0) 04/23/18 10:25 AST 15 U/L (13-39) 04/23/18 10:25 ALT 12 U/L (7-52) 04/23/18 10:25 Alkaline Phosphatase 58 U/L (34-104) 04/23/18 10:25 Troponin I < 0.01 ng/mL (0.01-0.05) L 04/23/18 10:25 Total Protein 7.4 gm/dL (6.0-8.3) 04/23/18 10:25 Albumin 3.8 gm/dL (4.2-5.5) L 04/23/18 10:25 Globulin 3.6 gm/dL 04/23/18 10:25 Albumin/Globulin Ratio 1.1 (1.0-1.8) 04/23/18 10:25 Triglycerides 71 mg/dL (<150) 04/25/18 13:07 Cholesterol 173 mg/dL (<200) 04/25/18 13:07 LDL Cholesterol Direct 107 mg/dL (75-193) 04/25/18 13:07 HDL Cholesterol 56 mg/dL (23-92) 04/25/18 13:07 TSH 1.27 uIU/ml (0.34-5.60) 04/23/18 10:25 Urine Source CLEAN C 04/23/18 10:28 Urine Color YELLOW 04/23/18 10:28 Urine Clarity CLEAR (CLEAR) 04/23/18 10:28 Urine pH 7.0 (4.6 - 8.0) 04/23/18 10:28 Ur Specific [place] < 1.005 (1.005-1.030) L 04/23/18 10:28 Urine Protein NEGATIVE mg/dL (NEGATIVE) 04/23/18 10:28 Urine Glucose (UA) NEGATIVE mg/dL (NEGATIVE) 04/23/18 10:28 Urine Ketones NEGATIVE mg/dL (NEGATIVE) 04/23/18 10:28 Urine Blood NEGATIVE (NEGATIVE) 04/23/18 10:28 Urine Nitrate NEGATIVE (NEGATIVE) 04/23/18 10:28 Urine Bilirubin NEGATIVE (NEGATIVE) 04/23/18 10:28 Urine Urobilinogen 0.2 E.U./dL (0.2 - 1.0) 04/23/18 10:28 Ur Leukocyte Esterase NEGATIVE (NEGATIVE) 04/23/18 10:28 Salicylates < 25.0 mg/L (30.0-100.0) L 04/23/18 10:25 Urine Opiates Screen NEGATIVE (NEGATIVE) 04/23/18 10:28 Urine Methadone Screen NEGATIVE (NEGATIVE) 04/23/18 10:28 Acetaminophen < 10.0 ug/mL (10.0-30.0) L 04/23/18 10:25 Ur Barbiturates Screen NEGATIVE (NEGATIVE) 04/23/18 10:28 Ur Tricyclics Screen NEGATIVE (NEGATIVE) 04/23/18 10:28 Ur Phencyclidine Scrn NEGATIVE (NEGATIVE) 04/23/18 10:28 Amphetamines Screen NEGATIVE (NEGATIVE) 04/23/18 10:28 U Methamphetamines Scrn NEGATIVE (NEGATIVE) 04/23/18 10:28 U Benzodiazepines Scrn NEGATIVE (NEGATIVE) 04/23/18 10:28 U Cocaine Metab Screen NEGATIVE (NEGATIVE) 04/23/18 10:28 U Cannabinoids Screen NEGATIVE (NEGATIVE) 04/23/18 10:28 Ethyl Alcohol < 10 mg/dL (0-10) 04/23/18 10:25 RPR NONREACTIVE (NONREACTIVE) 04/23/18 10:25 - Physical Exam Vitals and I&O: Vital Signs Temp 98.2 F 04/27/18 07:54 Pulse 96 04/27/18 07:54 Resp 20 04/27/18 07:54 BP 134/82 04/27/18 07:54 Pulse Ox 97 04/27/18 07:54 Intake & Output 04/26/18 04/27/18 04/27/18 18:59 06:59 18:59 Intake Total 1200 500 Output Total 1 Balance 1199 500 Intake: Oral 1200 500 Output: Stool 1 Other: # Voids 3 4 # Bowel Movements 1 Active Medications: Current Medications Aspirin (Aspirin Chewable) 81 mg PO DAILY [facility] Stop: 06/23/18 08:59 Last Admin: 04/27/18 08:45 Dose: 81 mg Atorvastatin Calcium (Lipitor) 20 mg PO HS CON Stop: 06/22/18 20:59 Last Admin: 04/26/18 20:52 Dose: 20 mg Betamethasone/Clotrimazole (Lotrisone Cream) 1 appl TP BID CON Stop: 06/23/18 09:59 Last Admin: 04/27/18 08:46 Dose: 1 appl Cyanocobalamin (Vitamin B12) 1,000 mcg PO DAILY CON Stop: 06/23/18 08:59 Last Admin: 04/27/18 08:46 Dose: 1,000 mcg Diphenhydramine HCl (Benadryl) 50 mg PO TID CON Stop: 06/23/18 09:14 Last Admin: 04/27/18 08:46 Dose: 50 mg Donepezil HCl (Aricept) 10 mg PO DAILY CON Stop: 06/23/18 08:59 Last Admin: 04/27/18 08:46 Dose: 10 mg Escitalopram Oxalate (Lexapro) 10 mg PO DAILY [facility]; Protocol Stop: 06/23/18 08:59 Last Admin: 04/27/18 08:46 Dose: 10 mg Insulin Aspart (Novolog Insulin Sliding Scale) 0 units SUBQ TIDWM CON; Protocol Stop: 06/23/18 07:59 Last Admin: 04/27/18 09:09 Dose: 20 units Ivermectin (Stromectol) 15 mg PO QWEEK 0730 [facility] Stop: 05/13/18 07:31 Lorazepam (Ativan) 0.5 mg PO Q4H PRN; Protocol PRN Reason: Anxiety Stop: 06/22/18 17:55 Last Admin: 04/26/18 09:24 Dose: 0.5 mg Metformin HCl (Glucophage) 850 mg PO TIDWM [facility] Stop: 06/25/18 11:59 Last Admin: 04/27/18 08:43 Dose: 850 mg Prednisone (Deltasone) 20 mg PO DAILY [facility] Stop: 05/02/18 08:59 Last Admin: 04/27/18 08:46 Dose: 20 mg Quetiapine Fumarate (Seroquel) 12.5 mg PO HS CON; Protocol Stop: 06/24/18 20:59 Last Admin: 04/26/18 20:52 Dose: 12.5 mg Trimethoprim/Sulfamethoxazole (Bactrim Ds) 1 tab PO BID [facility] Stop: 05/04/18 09:59 Last Admin: 04/27/18 08:46 Dose: 1 tab Zolpidem Tartrate (Ambien) 5 mg PO HS PRN PRN Reason: Insomnia Stop: 06/22/18 17:56 Last Admin: 04/23/18 20:57 Dose: 5 mg General: Alert, No acute distress HEENT: Atraumatic Neck: Supple Cardiovascular: Regular rate Lungs: Clear to auscultation Abdomen: Bowel sounds Extremities: Other (No edema) Neurological: Normal gait Skin: Other (Warm and dy) Psych/Mental Status: Other (Confused, not oriented) Assessment/Plan - Assessment Assessment: Patient is awake, alert, calm, in no aute distress. Blood sugar has been high. Dx: Increased in agitation, Dermatitis, HTN, DM, Hyerlipemia, CAD, Dementia - Plan Plan: Patient is follow by Psychiatry, continue with SNF meds, Glipizide is added. Will continue to monitor. Nutritional Asmnt/Malnutr-PDOC - Dietary Evaluation Malnutrition Findings (Please click <Entered> for more info): Nutritional Asmnt/Malnutrition Start: 04/26/18 13: 50 Text: Status: Complete Freq: Protocol: Document 04/26/18 13:50 LCCARROLG (Rec: 04/26/18 13:57 LCCARROLG [id number]) Nutritional Asmnt/Malnutrition Patient General Information Nutritional Screening Moderate Risk Diagnosis psychosis Pertinent Medical Hx/Surgical Hx HTN, dementia, schizophrenia, dermatitis, DM, eczema Subjective Information Pt seen sleeping in bed at time of visit. Per EMR, PO intake 100% of meals. Current Diet Order/ Nutrition Support CCHO-60gm NGA Pertinent Medications vit B12, glucophage, seroquel Pertinent Labs 04/23 Na 134, Glucose 73, A1c 7 .4 04/25-04/26 POC 143-539 Nutritional Hx/Data Height 1.75 m Height (Calculated Centimeters) 175.3 Current Weight (lbs) 77.111 kg Weight (Calculated Kilograms) 77.1 Weight (Calculated Grams) 94134.7 [place] Body Weight 160 Body Mass Index (BMI) 25.1 Weight Status Overweight GI Symptoms GI Symptoms None Last BM none Difficult in: None Skin Integrity/Comment: rash, scattered raised nodules on the legs, arm, and face near the ears Current %PO Good (75-100%) Estimated Nutritional Goals Calories/Kcals/Kg 23-27 Kcals Calculated 4804-6044 Protein g/k.8 Protein Calculated 62 Fluid: ml 1771-2079ml (1ml/kcal) Nutritional Problem No current Nutrition Prob Problem N/A Malnutrition Alert Is there a minimum of two criteria No selected? Query Text:Check all the applicable criteria. A minimum of two criteria are recommended for diagnosis of either severe or non-severe malnutrition. Malnutrition Related to Morbid Obesity Malnutrition related to morbid obesity No Intervention/Recommendation Comments 1. Continue with [facility] diet as ordered. 2. Monitor PO intake, wt, labs and skin integrity 3. F/U as moderate risk in 3-5 days, 04/29-05/01 Expected Outcomes/Goals Expected Outcomes/Goals 1. PO intake to meet at least 75% of nutritional needs. 2. Wt stability, skin to remain intact, labs to approach WNL.
[2018-04-27] MEDS: Atorvastatin Calcium 10 MG TAB PO SCH (20:39)
--- NOTE | 2018-04-28 01:31 | Progress Notes ---
DATE: 04/27/2018 SUBJECTIVE: Staff was spoken to. The patient is interviewed. Mood is noted to be irritable. Affect is constricted. The patient is screaming and yelling. The patient's coping skills are noted to be extremely poor. The patient has been placed on the Seroquel, which is going to be gradually increased to 25 mg. He continues to be very paranoid and agitated at this time. No side effects to the medications are noted. The patient is having short-term as well as long-term memory deficits. ASSESSMENT: The patient is psychotic and impulsive. PLAN: To continue the patient with the supportive therapy. The patient is not ready to be discharged to a lower level of care in view of his psychosis. [facility]# [id number]
[2018-04-28] MEDS: INSULIN ASPART SLIDING SCALE 100 UNITS/ML UNIT SUBQ SCH ×3 (06:29→16:56)
[2018-04-28] MEDS: Sulfamethoxazole/TMP 800/160mg Tab PO SCH ×2 (09:48→16:55)
[2018-04-28] MEDS: Aspirin 81mg Chewable Tab PO SCH (09:48)
[2018-04-28] MEDS: Betamethasone/Clotrimazole Cream 15 gm Tube TP SCH ×2 (09:55→17:19)
--- NOTE | 2018-04-28 11:11 | General Progress Note ---
Subjective - Review of Systems Service Date: 04/28/18 Subjective: Patient is confused Objective - Results Result Diagrams: 04/23/18 10:25 04/23/18 10:25 Recent Labs: Laboratory Last Values WBC 14.3 Th/cmm (4.8-10.8) H 04/23/18 10:25 RBC 4.16 Mil/cmm (3.80-5.80) 04/23/18 10:25 Hgb 13.1 gm/dL (12-16) 04/23/18 10:25 Hct 39.1 % (41.0-60) L 04/23/18 10:25 MCV 94.1 fl (80-99) 04/23/18 10:25 MCH 31.6 pg (27.0-31.0) H 04/23/18 10:25 MCHC Differential 33.6 pg (28.0-36.0) 04/23/18 10:25 RDW 12.3 % (11.5-20.0) 04/23/18 10:25 Plt Count 277 Th/cmm (150-400) 04/23/18 10:25 MPV 7.8 fl 04/23/18 10:25 Neutrophils % 73.1 % (40.0-80.0) 04/23/18 10:25 Lymphocytes % 17.3 % (20.0-50.0) L 04/23/18 10:25 Monocytes % 7.1 % (2.0-10.0) 04/23/18 10:25 Eosinophils % 2.0 % (0.0-5.0) 04/23/18 10:25 Basophils % 0.5 % (0.0-2.0) 04/23/18 10:25 Sodium 134 mEq/L (136-145) L 04/23/18 10:25 Potassium 3.7 mEq/L (3.5-5.1) 04/23/18 10:25 Chloride 98 mEq/L (98-107) 04/23/18 10:25 Carbon Dioxide 27.4 mEq/L (21.0-31.0) 04/23/18 10:25 Anion Gap 12.3 (7.0-16.0) 04/23/18 10:25 BUN 14 mg/dL (7-25) 04/23/18 10:25 Creatinine 0.7 mg/dL (0.7-1.3) 04/23/18 10:25 Est GFR ( Amer) > 60.0 ml/min (>90) 04/23/18 10:25 Est GFR (Non-Af Amer) > 60.0 ml/min 04/23/18 10:25 BUN/Creatinine Ratio 20.0 04/23/18 10:25 Glucose 73 mg/dL (70-105) 04/23/18 10:25 POC Glucose 341 MG/DL (70 - 105) H 04/28/18 06:13 Hemoglobin A1c % 7.4 % (4.0-6.0) H 04/23/18 10:25 Whole Bld Lactic Acid 1.96 mmol/L (0.60-1.99) 04/23/18 12:20 Calcium 8.9 mg/dL (8.6-10.3) 04/23/18 10:25 Total Bilirubin 0.5 mg/dL (0.3-1.0) 04/23/18 10:25 AST 15 U/L (13-39) 04/23/18 10:25 ALT 12 U/L (7-52) 04/23/18 10:25 Alkaline Phosphatase 58 U/L (34-104) 04/23/18 10:25 Troponin I < 0.01 ng/mL (0.01-0.05) L 04/23/18 10:25 Total Protein 7.4 gm/dL (6.0-8.3) 04/23/18 10:25 Albumin 3.8 gm/dL (4.2-5.5) L 04/23/18 10:25 Globulin 3.6 gm/dL 04/23/18 10:25 Albumin/Globulin Ratio 1.1 (1.0-1.8) 04/23/18 10:25 Triglycerides 71 mg/dL (<150) 04/25/18 13:07 Cholesterol 173 mg/dL (<200) 04/25/18 13:07 LDL Cholesterol Direct 107 mg/dL (75-193) 04/25/18 13:07 HDL Cholesterol 56 mg/dL (23-92) 04/25/18 13:07 TSH 1.27 uIU/ml (0.34-5.60) 04/23/18 10:25 Urine Source CLEAN C 04/23/18 10:28 Urine Color YELLOW 04/23/18 10:28 Urine Clarity CLEAR (CLEAR) 04/23/18 10:28 Urine pH 7.0 (4.6 - 8.0) 04/23/18 10:28 Ur Specific [place] < 1.005 (1.005-1.030) L 04/23/18 10:28 Urine Protein NEGATIVE mg/dL (NEGATIVE) 04/23/18 10:28 Urine Glucose (UA) NEGATIVE mg/dL (NEGATIVE) 04/23/18 10:28 Urine Ketones NEGATIVE mg/dL (NEGATIVE) 04/23/18 10:28 Urine Blood NEGATIVE (NEGATIVE) 04/23/18 10:28 Urine Nitrate NEGATIVE (NEGATIVE) 04/23/18 10:28 Urine Bilirubin NEGATIVE (NEGATIVE) 04/23/18 10:28 Urine Urobilinogen 0.2 E.U./dL (0.2 - 1.0) 04/23/18 10:28 Ur Leukocyte Esterase NEGATIVE (NEGATIVE) 04/23/18 10:28 Salicylates < 25.0 mg/L (30.0-100.0) L 04/23/18 10:25 Urine Opiates Screen NEGATIVE (NEGATIVE) 04/23/18 10:28 Urine Methadone Screen NEGATIVE (NEGATIVE) 04/23/18 10:28 Acetaminophen < 10.0 ug/mL (10.0-30.0) L 04/23/18 10:25 Ur Barbiturates Screen NEGATIVE (NEGATIVE) 04/23/18 10:28 Ur Tricyclics Screen NEGATIVE (NEGATIVE) 04/23/18 10:28 Ur Phencyclidine Scrn NEGATIVE (NEGATIVE) 04/23/18 10:28 Amphetamines Screen NEGATIVE (NEGATIVE) 04/23/18 10:28 U Methamphetamines Scrn NEGATIVE (NEGATIVE) 04/23/18 10:28 U Benzodiazepines Scrn NEGATIVE (NEGATIVE) 04/23/18 10:28 U Cocaine Metab Screen NEGATIVE (NEGATIVE) 04/23/18 10:28 U Cannabinoids Screen NEGATIVE (NEGATIVE) 04/23/18 10:28 Ethyl Alcohol < 10 mg/dL (0-10) 04/23/18 10:25 RPR NONREACTIVE (NONREACTIVE) 04/23/18 10:25 - Physical Exam Vitals and I&O: Vital Signs Temp 97.2 F 04/27/18 20:32 Pulse 97 04/27/18 20:32 Resp 19 04/27/18 20:32 BP 125/69 04/27/18 20:32 Pulse Ox 97 04/27/18 20:32 Intake & Output 04/27/18 04/28/18 04/28/18 18:59 06:59 18:59 Intake Total 1700 240 Balance 1700 240 Intake: Oral 1700 240 Other: # Voids 4 2 # Bowel Movements 1 Active Medications: Current Medications Aspirin (Aspirin Chewable) 81 mg PO DAILY [facility] Stop: 06/23/18 08:59 Last Admin: 04/28/18 09:48 Dose: 81 mg Atorvastatin Calcium (Lipitor) 20 mg PO HS CON Stop: 06/22/18 20:59 Last Admin: 04/27/18 20:39 Dose: 20 mg Betamethasone/Clotrimazole (Lotrisone Cream) 1 appl TP BID CON Stop: 06/23/18 09:59 Last Admin: 04/27/18 16:58 Dose: 1 appl Cyanocobalamin (Vitamin B12) 1,000 mcg PO DAILY CON Stop: 06/23/18 08:59 Last Admin: 04/28/18 09:48 Dose: 1,000 mcg Diphenhydramine HCl (Benadryl) 50 mg PO TID [facility] Stop: 06/23/18 09:14 Last Admin: 04/28/18 09:48 Dose: 50 mg Donepezil HCl (Aricept) 10 mg PO DAILY CON Stop: 06/23/18 08:59 Last Admin: 04/28/18 09:49 Dose: 10 mg Escitalopram Oxalate (Lexapro) 10 mg PO DAILY [facility]; Protocol Stop: 06/23/18 08:59 Last Admin: 04/28/18 09:49 Dose: 10 mg Glipizide (Glucotrol) 10 mg PO QDAC [facility] Stop: 06/26/18 17:29 Last Admin: 04/28/18 06:36 Dose: 10 mg Insulin Aspart (Novolog Insulin Sliding Scale) 0 units SUBQ AC [facility]; Protocol Stop: 06/26/18 11:29 Last Admin: 04/28/18 06:29 Dose: 10 units Ivermectin (Stromectol) 15 mg PO QWEEK 0730 [facility] Stop: 05/13/18 07:31 Lorazepam (Ativan) 0.5 mg PO Q4H PRN; Protocol PRN Reason: Anxiety Stop: 06/22/18 17:55 Last Admin: 04/26/18 09:24 Dose: 0.5 mg Metformin HCl (Glucophage) 850 mg PO TIDWM [facility] Stop: 06/25/18 11:59 Last Admin: 04/28/18 09:52 Dose: 850 mg Prednisone (Deltasone) 20 mg PO DAILY CON Stop: 05/02/18 08:59 Last Admin: 04/28/18 09:49 Dose: 20 mg Quetiapine Fumarate (Seroquel) 25 mg PO HS CON; Protocol Stop: 06/26/18 20:59 Trimethoprim/Sulfamethoxazole (Bactrim Ds) 1 tab PO BID CON Stop: 05/04/18 09:59 Last Admin: 04/28/18 09:48 Dose: 1 tab Zolpidem Tartrate (Ambien) 5 mg PO HS PRN PRN Reason: Insomnia Stop: 06/22/18 17:56 Last Admin: 04/23/18 20:57 Dose: 5 mg General: Alert, No acute distress HEENT: Atraumatic Neck: Supple Cardiovascular: Regular rate Lungs: Clear to auscultation Abdomen: Bowel sounds Extremities: Other (No edema) Neurological: Normal gait Skin: Other (Warm and dy) Psych/Mental Status: Other (Confused, not oriented) Assessment/Plan - Assessment Assessment: Patient is awake, alert, calm, in no aute distress. Blood sugar has been high. Dx: Increased in agitation, Dermatitis, HTN, DM, Hyerlipemia, CAD, Dementia - Plan Plan: Patient is follow by Psychiatry, continue with SNF meds, Glipizide is added. Will continue to monitor. Nutritional Asmnt/Malnutr-PDOC - Dietary Evaluation Malnutrition Findings (Please click <Entered> for more info): Nutritional Asmnt/Malnutrition Start: 04/26/18 13: 50 Text: Status: Complete Freq: Protocol: Document 04/26/18 13:50 VIVIANAG (Rec: 04/26/18 13:57 VIVIANAG [email or web address]) Nutritional Asmnt/Malnutrition Patient General Information Nutritional Screening Moderate Risk Diagnosis psychosis Pertinent Medical Hx/Surgical Hx HTN, dementia, schizophrenia, dermatitis, DM, eczema Subjective Information Pt seen sleeping in bed at time of visit. Per EMR, PO intake 100% of meals. Current Diet Order/ [facility] Pertinent Medications vit B12, glucophage, seroquel Pertinent Labs 04/23 Na 134, Glucose 73, A1c 7 .4 04/25-04/26 POC 143-539 Nutritional Hx/Data Height 1.75 m Height (Calculated Centimeters) 175.3 Current Weight (lbs) 77.111 kg Weight (Calculated Kilograms) 77.1 Weight (Calculated Grams) 07795.7 [place] Body Weight 160 Body Mass Index (BMI) 25.1 Weight Status Overweight GI Symptoms GI Symptoms None Last BM none Difficult in: None Skin Integrity/Comment: rash, scattered raised nodules on the legs, arm, and face near the ears Current %PO Good (75-100%) Estimated Nutritional Goals Calories/Kcals/Kg 23-27 Kcals Calculated 9901-9502 Protein g/k.8 Protein Calculated 62 Fluid: ml 1771-2079ml (1ml/kcal) Nutritional Problem No current Nutrition Prob Problem N/A Malnutrition Alert Is there a minimum of two criteria No selected? Query Text:Check all the applicable criteria. A minimum of two criteria are recommended for diagnosis of either severe or non-severe malnutrition. Malnutrition Related to Morbid Obesity Malnutrition related to morbid obesity No Intervention/Recommendation Comments 1. Continue with [facility] diet as ordered. 2. Monitor PO intake, wt, labs and skin integrity 3. F/U as moderate risk in 3-5 days, 04/29-05/01 Expected Outcomes/Goals Expected Outcomes/Goals 1. PO intake to meet at least 75% of nutritional needs. 2. Wt stability, skin to remain intact, labs to approach WNL.
--- NOTE | 2018-04-28 17:37 | Progress Notes ---
DATE: 04/28/2018 SUBJECTIVE: Staff was spoken to. The patient is interviewed. Mood is noted to be irritable. Affect is constricted. The patient is not making much sense. The patient is going on tangent. The patient has been placed on 25 mg of the Seroquel and has been able to tolerate the medications. No side effects to the medications are noted at this time. The patient has both short-term as well as long-term memory deficits. ASSESSMENT: The patient is still paranoid and impulsive. PLAN: To continue the patient with the supportive therapy and I encouraged the patient to verbalize the concerns rather than to act out. JOB# [id number]
[2018-04-28] MEDS: Atorvastatin Calcium 10 MG TAB PO SCH (20:52)
[2018-04-29] MEDS: INSULIN ASPART SLIDING SCALE 100 UNITS/ML UNIT SUBQ SCH ×2 (06:38→12:26)
[2018-04-29] MEDS: Sulfamethoxazole/TMP 800/160mg Tab PO SCH (09:29)
[2018-04-29] MEDS: Betamethasone/Clotrimazole Cream 15 gm Tube TP SCH (09:29)
[2018-04-29] MEDS: Aspirin 81mg Chewable Tab PO SCH (09:30)
--- NOTE | 2018-04-29 11:40 | General Progress Note ---
Subjective - Review of Systems Service Date: 04/29/18 Subjective: Patient is confused Objective - Results Result Diagrams: 04/23/18 10:25 04/23/18 10:25 Recent Labs: Laboratory Last Values WBC 14.3 Th/cmm (4.8-10.8) H 04/23/18 10:25 RBC 4.16 Mil/cmm (3.80-5.80) 04/23/18 10:25 Hgb 13.1 gm/dL (12-16) 04/23/18 10:25 Hct 39.1 % (41.0-60) L 04/23/18 10:25 MCV 94.1 fl (80-99) 04/23/18 10:25 MCH 31.6 pg (27.0-31.0) H 04/23/18 10:25 MCHC Differential 33.6 pg (28.0-36.0) 04/23/18 10:25 RDW 12.3 % (11.5-20.0) 04/23/18 10:25 Plt Count 277 Th/cmm (150-400) 04/23/18 10:25 MPV 7.8 fl 04/23/18 10:25 Neutrophils % 73.1 % (40.0-80.0) 04/23/18 10:25 Lymphocytes % 17.3 % (20.0-50.0) L 04/23/18 10:25 Monocytes % 7.1 % (2.0-10.0) 04/23/18 10:25 Eosinophils % 2.0 % (0.0-5.0) 04/23/18 10:25 Basophils % 0.5 % (0.0-2.0) 04/23/18 10:25 Sodium 134 mEq/L (136-145) L 04/23/18 10:25 Potassium 3.7 mEq/L (3.5-5.1) 04/23/18 10:25 Chloride 98 mEq/L (98-107) 04/23/18 10:25 Carbon Dioxide 27.4 mEq/L (21.0-31.0) 04/23/18 10:25 Anion Gap 12.3 (7.0-16.0) 04/23/18 10:25 BUN 14 mg/dL (7-25) 04/23/18 10:25 Creatinine 0.7 mg/dL (0.7-1.3) 04/23/18 10:25 Est GFR ( Amer) > 60.0 ml/min (>90) 04/23/18 10:25 Est GFR (Non-Af Amer) > 60.0 ml/min 04/23/18 10:25 BUN/Creatinine Ratio 20.0 04/23/18 10:25 Glucose 73 mg/dL (70-105) 04/23/18 10:25 POC Glucose 297 MG/DL (70 - 105) H 04/29/18 06:16 Hemoglobin A1c % 7.4 % (4.0-6.0) H 04/23/18 10:25 Whole Bld Lactic Acid 1.96 mmol/L (0.60-1.99) 04/23/18 12:20 Calcium 8.9 mg/dL (8.6-10.3) 04/23/18 10:25 Total Bilirubin 0.5 mg/dL (0.3-1.0) 04/23/18 10:25 AST 15 U/L (13-39) 04/23/18 10:25 ALT 12 U/L (7-52) 04/23/18 10:25 Alkaline Phosphatase 58 U/L (34-104) 04/23/18 10:25 Troponin I < 0.01 ng/mL (0.01-0.05) L 04/23/18 10:25 Total Protein 7.4 gm/dL (6.0-8.3) 04/23/18 10:25 Albumin 3.8 gm/dL (4.2-5.5) L 04/23/18 10:25 Globulin 3.6 gm/dL 04/23/18 10:25 Albumin/Globulin Ratio 1.1 (1.0-1.8) 04/23/18 10:25 Triglycerides 71 mg/dL (<150) 04/25/18 13:07 Cholesterol 173 mg/dL (<200) 04/25/18 13:07 LDL Cholesterol Direct 107 mg/dL (75-193) 04/25/18 13:07 HDL Cholesterol 56 mg/dL (23-92) 04/25/18 13:07 TSH 1.27 uIU/ml (0.34-5.60) 04/23/18 10:25 Urine Source CLEAN C 04/23/18 10:28 Urine Color YELLOW 04/23/18 10:28 Urine Clarity CLEAR (CLEAR) 04/23/18 10:28 Urine pH 7.0 (4.6 - 8.0) 04/23/18 10:28 Ur Specific [place] < 1.005 (1.005-1.030) L 04/23/18 10:28 Urine Protein NEGATIVE mg/dL (NEGATIVE) 04/23/18 10:28 Urine Glucose (UA) NEGATIVE mg/dL (NEGATIVE) 04/23/18 10:28 Urine Ketones NEGATIVE mg/dL (NEGATIVE) 04/23/18 10:28 Urine Blood NEGATIVE (NEGATIVE) 04/23/18 10:28 Urine Nitrate NEGATIVE (NEGATIVE) 04/23/18 10:28 Urine Bilirubin NEGATIVE (NEGATIVE) 04/23/18 10:28 Urine Urobilinogen 0.2 E.U./dL (0.2 - 1.0) 04/23/18 10:28 Ur Leukocyte Esterase NEGATIVE (NEGATIVE) 04/23/18 10:28 Salicylates < 25.0 mg/L (30.0-100.0) L 04/23/18 10:25 Urine Opiates Screen NEGATIVE (NEGATIVE) 04/23/18 10:28 Urine Methadone Screen NEGATIVE (NEGATIVE) 04/23/18 10:28 Acetaminophen < 10.0 ug/mL (10.0-30.0) L 04/23/18 10:25 Ur Barbiturates Screen NEGATIVE (NEGATIVE) 04/23/18 10:28 Ur Tricyclics Screen NEGATIVE (NEGATIVE) 04/23/18 10:28 Ur Phencyclidine Scrn NEGATIVE (NEGATIVE) 04/23/18 10:28 Amphetamines Screen NEGATIVE (NEGATIVE) 04/23/18 10:28 U Methamphetamines Scrn NEGATIVE (NEGATIVE) 04/23/18 10:28 U Benzodiazepines Scrn NEGATIVE (NEGATIVE) 04/23/18 10:28 U Cocaine Metab Screen NEGATIVE (NEGATIVE) 04/23/18 10:28 U Cannabinoids Screen NEGATIVE (NEGATIVE) 04/23/18 10:28 Ethyl Alcohol < 10 mg/dL (0-10) 04/23/18 10:25 RPR NONREACTIVE (NONREACTIVE) 04/23/18 10:25 - Physical Exam Vitals and I&O: Vital Signs Temp 97.9 F 04/29/18 06:34 Pulse 80 04/29/18 06:34 Resp 20 04/29/18 06:34 BP 130/72 04/29/18 06:34 Pulse Ox 97 04/29/18 06:34 Intake & Output 04/28/1818 18 18:59 06:59 18:59 Intake Total 1500 120 Balance 1500 120 Intake: Oral 1500 120 Other: # Voids 5 3 # Bowel Movements 1 Active Medications: Current Medications Aspirin (Aspirin Chewable) 81 mg PO DAILY CON Stop: 06/23/18 08:59 Last Admin: 04/29/18 09:30 Dose: 81 mg Atorvastatin Calcium (Lipitor) 20 mg PO HS CON Stop: 06/22/18 20:59 Last Admin: 04/28/18 20:52 Dose: 20 mg Betamethasone/Clotrimazole (Lotrisone Cream) 1 appl TP BID [facility] Stop: 06/23/18 09:59 Last Admin: 04/29/18 09:29 Dose: 1 appl Cyanocobalamin (Vitamin B12) 1,000 mcg PO DAILY CON Stop: 06/23/18 08:59 Last Admin: 04/29/18 09:30 Dose: 1,000 mcg Diphenhydramine HCl (Benadryl) 50 mg PO TID [facility] Stop: 06/23/18 09:14 Last Admin: 04/29/18 09:29 Dose: 50 mg Donepezil HCl (Aricept) 10 mg PO DAILY [facility] Stop: 06/23/18 08:59 Last Admin: 04/29/18 09:30 Dose: 10 mg Escitalopram Oxalate (Lexapro) 10 mg PO DAILY [facility]; Protocol Stop: 06/23/18 08:59 Last Admin: 04/29/18 09:30 Dose: 10 mg Glipizide (Glucotrol) 10 mg PO QDAC CON Stop: 06/26/18 17:29 Last Admin: 04/29/18 06:37 Dose: 10 mg Insulin Aspart (Novolog Insulin Sliding Scale) 0 units SUBQ AC [facility]; Protocol Stop: 06/26/18 11:29 Last Admin: 04/29/18 06:38 Dose: 8 units Insulin Detemir (Levemir Insulin) 10 units SUBQ BID [facility]; Protocol Stop: 06/28/18 16:59 Ivermectin (Stromectol) 15 mg PO QWEEK 0730 [facility] Stop: 05/13/18 07:31 Last Admin: 04/29/18 07:06 Dose: 15 mg Lorazepam (Ativan) 0.5 mg PO Q4H PRN; Protocol PRN Reason: Anxiety Stop: 06/22/18 17:55 Last Admin: 04/29/18 09:30 Dose: 0.5 mg Metformin HCl (Glucophage) 850 mg PO TIDWM CON Stop: 06/25/18 11:59 Last Admin: 04/29/18 08:30 Dose: 850 mg Prednisone (Deltasone) 20 mg PO DAILY CON Stop: 05/02/18 08:59 Last Admin: 04/29/18 09:30 Dose: 20 mg Quetiapine Fumarate (Seroquel) 25 mg PO HS CON; Protocol Stop: 06/26/18 20:59 Trimethoprim/Sulfamethoxazole (Bactrim Ds) 1 tab PO BID CON Stop: 05/04/18 09:59 Last Admin: 04/29/18 09:29 Dose: 1 tab Zolpidem Tartrate (Ambien) 5 mg PO HS PRN PRN Reason: Insomnia Stop: 06/22/18 17:56 Last Admin: 04/23/18 20:57 Dose: 5 mg General: Alert, No acute distress HEENT: Atraumatic Neck: Supple Cardiovascular: Regular rate Lungs: Clear to auscultation Abdomen: Bowel sounds Extremities: Other (No edema) Neurological: Normal gait Skin: Other (Warm and dy) Psych/Mental Status: Other (Confused, not oriented) Assessment/Plan - Assessment Assessment: Patient is awake, alert, calm, in no aute distress. Blood sugar has been high. Dx: Increased in agitation, Dermatitis, HTN, DM, Hyerlipemia, CAD, Dementia - Plan Plan: Patient is follow by Psychiatry, continue with SNF meds, Glipizide is added. Will continue to monitor. Nutritional Asmnt/Malnutr-PDOC - Dietary Evaluation Malnutrition Findings (Please click <Entered> for more info): Nutritional Asmnt/Malnutrition Start: 04/26/18 13: 50 Text: Status: Complete Freq: Protocol: Document 04/26/18 13:50 ELEAZAR (Rec: 04/26/18 13:57 ELEAZAR [email or web address]) Nutritional Asmnt/Malnutrition Patient General Information Nutritional Screening Moderate Risk Diagnosis psychosis Pertinent Medical Hx/Surgical Hx HTN, dementia, schizophrenia, dermatitis, DM, eczema Subjective Information Pt seen sleeping in bed at time of visit. Per EMR, PO intake 100% of meals. Current Diet Order/ Nutrition Support [facility]-60gm NGA Pertinent Medications vit B12, glucophage, seroquel Pertinent Labs 04/23 Na 134, Glucose 73, A1c 7 .4 04/25-04/26 POC 143-539 Nutritional Hx/Data Height 1.75 m Height (Calculated Centimeters) 175.3 Current Weight (lbs) 77.111 kg Weight (Calculated Kilograms) 77.1 Weight (Calculated Grams) 20342.7 [place] Body Weight 160 Body Mass Index (BMI) 25.1 Weight Status Overweight GI Symptoms GI Symptoms None Last BM none Difficult in: None Skin Integrity/Comment: rash, scattered raised nodules on the legs, arm, and face near the ears Current %PO Good (75-100%) Estimated Nutritional Goals Calories/Kcals/Kg 23-27 Kcals Calculated 7487-1850 Protein g/k.8 Protein Calculated 62 Fluid: ml 1771-2079ml (1ml/kcal) Nutritional Problem No current Nutrition Prob Problem N/A Malnutrition Alert Is there a minimum of two criteria No selected? Query Text:Check all the applicable criteria. A minimum of two criteria are recommended for diagnosis of either severe or non-severe malnutrition. Malnutrition Related to Morbid Obesity Malnutrition related to morbid obesity No Intervention/Recommendation Comments 1. Continue with [facility]-60gm NGA diet as ordered. 2. Monitor PO intake, wt, labs and skin integrity 3. F/U as moderate risk in 3-5 days, 04/29-05/01 Expected Outcomes/Goals Expected Outcomes/Goals 1. PO intake to meet at least 75% of nutritional needs. 2. Wt stability, skin to remain intact, labs to approach WNL.
--- NOTE | 2018-04-29 12:17 | Progress Notes ---
DATE: 04/29/2018 SUBJECTIVE: Staff was spoken to. The patient is interviewed. Mood is noted to be irritable. Affect is constricted. The patient ____ hallucinations. No side effects to the medications are noted. The patient has been still very confused and demented and is not making much sense. ASSESSMENT: The patient is still depressed. PLAN: To continue the patient with the supportive therapy, I encouraged the patient to verbalize the concerns rather than to act out. JOB# [id number]
[2018-04-29] MEDS ORDERED: INSULIN ASPART SLIDING SCALE 100 UNITS/ML UNIT SUBQ ONE ×2 (12:30→16:19)
[2018-04-29] MEDS ORDERED: Insulin Detemir 100 units/mL 10mL Vial SUBQ SCH (17:00)
== END 2018-04-29 16:20 | DRG 885 ==
LOC: ER 10:03 → GERO 15:48
PROVIDERS: ADMIT Psychiatry & Neurology Psychiatry; ATTEND Psychiatry & Neurology Psychiatry
DX: F29 Unspecified psychosis not due to a substance or known physiological condition (principal); F03.91 Unspecified dementia, unspecified severity, with behavioral disturbance; F41.9 Anxiety disorder, unspecified; F31.9 Bipolar disorder, unspecified; I10 Essential (primary) hypertension; E78.5 Hyperlipidemia, unspecified; L30.9 Dermatitis, unspecified; I25.10 Atherosclerotic heart disease of native coronary artery without angina pectoris; Z82.49 Family history of ischemic heart disease and other diseases of the circulatory system
CPT/HCPCS: 36415-UA; 71045-TC; 80053-TC; 80061-TC; 80307; 80320-TC; 80329-TC; 81003-TC; 82948-90; 83036-90; 83605; 84443-TC; 84484-TC; 85025-TC; 86592-TC; 93005; G0410; J1200; J1630; J1815; J2060; Z7610